=== PATIENT | female | born 1950 | race Caucasian/White ===

== ENCOUNTER 2020-07-02 08:00 | Outpatient (CLI) | payer MEDICARE, OTHER ==
[2020-07-02 13:02] LABS: CHOL/HDL RATIO 3.2 (<4.4); CHOLESTEROL 175 mg/dL; HDL CHOLESTEROL 55 mg/dL; LDL CHOLESTEROL,CALCULATED 88 mg/dL; LDL/HDL RATIO 1.6 (<4.4); TRIGLYCERIDES 162 mg/dL; VLDL CHOLESTEROL 32 mg/dL
[2020-07-02 13:04] LABS: THYROID STIMULATING HORMONE 1.55 uIU/mL (0.34-5.60)
== END 2020-07-02 23:59 | disposition home or self-care (01) ==
LOC: LAB.WCP 08:00
PROVIDERS: ATTEND Family Medicine
DX: E78.5 Hyperlipidemia, unspecified (principal); E03.9 Hypothyroidism, unspecified
CPT/HCPCS: 36415; 80061; 83721; 84443

== ENCOUNTER 2022-01-03 09:31 | Outpatient (CLI) | payer MEDICARE, OTHER ==
[2022-01-03 12:18] LABS: BASOPHILS % (AUTO) 0.5 %; EOSINOPHILS # (AUTO) 0.4 10^3/uL (0.0-0.7); EOSINOPHILS % (AUTO) 6.2 %; HCT - HEMATOCRIT 41.3 % (37.0-47.0); HGB - HEMOGLOBIN 13.3 g/dL (12.0-16.0); LYMPHOCYTES # (AUTO) 1.6 10^3/uL (1.5-3.5); LYMPHOCYTES % (AUTO) 27.4 %; MEAN CORPUSCULAR HEMOGLOBIN 30.1 pg (27.0-31.0); MEAN CORPUSCULAR HGB CONC 32.2 g/dL (32.0-36.0); MEAN CORPUSCULAR VOLUME 93.4 fL (81.0-99.0); MEAN PLATELET VOLUME 10.1 fL (7.9-10.8); MONOCYTES # (AUTO) 0.4 10^3/uL (0.0-1.0); MONOCYTES % (AUTO) 6.6 %; NEUTROPHILS # (AUTO) 3.4 10^3/uL (1.5-6.6); PLT - PLATELET COUNT 290 10^3/uL (130-450); RED BLOOD COUNT 4.42 10^6/uL (4.20-5.40); RED CELL DISTRIBUTION WIDTH 12.7 % (12.0-15.0); WHITE BLOOD COUNT 5.8 x10^3/uL (4.8-10.8)
[2022-01-03 12:50] LABS: THYROID STIMULATING HORMONE 2.62 uIU/mL (0.34-5.60)
[2022-01-03 13:04] LABS: ALBUMIN 4.2 g/dL (3.2-5.5); ALBUMIN/GLOBULIN RATIO 1.2 (1.0-2.2); ALKALINE PHOSPHATASE 68 IU/L (42-121); ALT ALANINE AMINOTRANSFERASE 20 IU/L (10-60); AST ASPARTATE AMINOTRANSFERASE 21 IU/L (10-42); BILIRUBIN,TOTAL 0.4 mg/dL (0.2-1.0); BUN - BLOOD UREA NITROGEN 17 mg/dL (6-20); CHOL/HDL RATIO 3.8 (<4.4); CHOLESTEROL 185 mg/dL; GFR - MDRD 55 (>89); HDL CHOLESTEROL 49 mg/dL; LDL CHOLESTEROL,CALCULATED 101 mg/dL; LDL/HDL RATIO 2.1 (<4.4); TOTAL PROTEIN 7.7 g/dL (6.7-8.2); TRIGLYCERIDES 175 mg/dL; VLDL CHOLESTEROL 35 mg/dL
[2022-01-03 13:16] LABS: CARBON DIOXIDE - CO2 31 mmol/L (21-32); CHLORIDE 100 mmol/L (101-111); GLUCOSE 99 mg/dL (70-100); POTASSIUM 4.5 mmol/L (3.5-5.0); SODIUM 140 mmol/L (135-145)
== END 2022-01-03 09:32 | disposition home or self-care (01) ==
LOC: LAB.N 09:31
PROVIDERS: ATTEND Physician Assistant
DX: I10 Essential (primary) hypertension (principal); E78.5 Hyperlipidemia, unspecified; E03.9 Hypothyroidism, unspecified
CPT/HCPCS: 36415; 80053; 80061; 83721; 84443; 85025

== ENCOUNTER 2022-05-06 10:21 | Emergency (ER) | payer MEDICARE, BC ==
--- NOTE | 2022-05-06 10:57 | ED Physician Documentation ---
PD HPI LOWER EXT INJURY - Stated complaint Stated Complaint: RIGHT FT TOE INJURY - Chief complaint Chief Complaint: Trauma Ext - History obtained from History obtained from: Patient - History of Present Illness PD HPI LOW EXT INJURY LOCATION: Right, Toe (4th toe) Type of injury: Blunt / blow (accidentally struck toe on furniture when walking barefoot at home last evening.) Where injury occurred: Home Timing - onset: Last night Timing - details: Abrupt onset, Still present Review of Systems Constitutional: denies: Fever, Chills Skin: denies: Abrasion (s), Laceration (s) Neurologic: denies: Focal weakness, Numbness PD PAST MEDICAL HISTORY - Present Medications Home Medications: Ambulatory Orders Medication Instructions Recorded Confirmed Aspirin [Aspirin EC] 81 mg PO DAILY 05/06/22 05/06/22 Calcium Carbonate [Calcium] 600 mg PO DAILY 05/06/22 05/06/22 Cholecalciferol (Vitamin D3) 1,000 unit PO DAILY 05/06/22 05/06/22 [Vitamin D3] Levothyroxine [Synthroid] 75 mcg PO QDAC 05/06/22 05/06/22 Losartan Potassium [Cozaar] 100 mg PO DAILY 05/06/22 05/06/22 Multivitamin 1 each PO DAILY 05/06/22 05/06/22 Simvastatin [Zocor] 40 mg PO HS 05/06/22 05/06/22 hydroCHLOROthiazide [Hydrodiuril] 25 mg PO DAILY 05/06/22 05/06/22 - Allergies Allergies/Adverse Reactions: Allergies Allergy/AdvReac Type Severity Reaction Status Date / Time acetaminophen [From Vicodin] AdvReac Nausea Verified 05/06/22 10:27 hydrocodone [From Vicodin] AdvReac Nausea Verified 05/06/22 10:27 PD ED PE NORMAL - Vitals Vital signs reviewed: Yes - General General: Alert and oriented X 3, Well developed/nourished - Derm Derm: Normal color, Warm and dry Results - Vitals Vitals: Vital Signs - 24 hr 05/06/22 05/06/22 10:25 11:50 Temperature 36.5 C Heart Rate 62 65 Respiratory 14 16 Rate Blood Pressure 169/85 H 150/78 H O2 Saturation 99 98 Oxygen O2 Source Room air - Rads (name of study) toes right Relevant Findings:: Prelim report reviewed, EMP independent interpretation of test (slightly angulated diagnoal fracture of proximal 4th toe. ), See rad report PD Medical Decision Making - ED course Complexity details: reviewed results, re-evaluated patient (the fracture is just tipped/angled and not dislocated. It just needs fransico taping. ), considered differential (eval to see if fractured or sprained. ), d/w patient Social Determinants of Health: she is going on a trip vacation to [place] in 8 days. she is hoping to walk on [place]. I believe she can do that and it will hurt to have toe shift around on sand movement, but okay to do it if not hurting too much. Keep it taped fransico. Departure - Departure Disposition: 01 Home, Self Care Clinical Impression: Toe fracture, right Condition: Stable Instructions: ED Fx Toe Closed Follow-Up: Orthopedic Care [Provider Group] Comments: Your toe is fractured. It is a diagonal type fracture through the shaft of the proximal tailbone. It is crooked mostly just because it is leaning to the side. Fransico tape it to the third toe to help keep it more straight and less movement. Firm soled shoe will help with the discomfort of walking. This really just needs to heal up over 3 to 4 weeks and be kept fairly splinted or taped in position as it heals. Elevate and rest it to reduce swelling. Activity as tolerated. Tylenol or ibuprofen if needed for pains. Recheck if its not feeling healed up well over 3 to 4 weeks. Discharge Date/Time: 05/06/22 11:51
--- NOTE | 2022-05-06 11:40 | XRAY Report ---
PROCEDURE: Foot 3 View RT INDICATIONS: Trauma TECHNIQUE: 4 views of the foot were acquired. COMPARISON: None. FINDINGS: Bones: Fourth digit proximal phalanx oblique shaft fracture. No dislocations. This fracture could be subacute. No intra-articular extension. No suspicious bony lesions. Soft tissues: No tibiotalar joint effusion. Achilles tendon appears normal. IMPRESSION: Fourth digit proximal phalanx shaft fracture. Reviewed by: Maurice Solano MD on 05/06/2022 11:39 AM [facility] Approved by: Maurice Solano MD on 05/06/2022 11:39 AM [facility] Station ID: [id number]
[2022-05-06 11:51] VITALS: BP 150/78
== END 2022-05-06 11:51 | disposition home or self-care (01) ==
LOC: ED 10:21
DX: S92.511A Displaced fracture of proximal phalanx of right lesser toe(s), initial encounter for closed fracture (principal); W22.03XA Walked into furniture, initial encounter; Y93.01 Activity, walking, marching and hiking; Y92.009 Unspecified place in unspecified non-institutional (private) residence as the place of occurrence of the external cause
CPT/HCPCS: 99283

== ENCOUNTER 2023-06-07 08:06 | Outpatient (CLI) | payer MEDICARE, BC ==
[2023-06-07 12:02] LABS: BASOPHILS % (AUTO) 0.6 %; EOSINOPHILS # (AUTO) 0.3 10^3/uL (0.0-0.7); EOSINOPHILS % (AUTO) 6.9 %; HCT - HEMATOCRIT 43.9 % (37.0-47.0); HGB - HEMOGLOBIN 13.9 g/dL (12.0-16.0); LYMPHOCYTES # (AUTO) 1.3 10^3/uL (1.5-3.5); LYMPHOCYTES % (AUTO) 26.2 %; MEAN CORPUSCULAR HEMOGLOBIN 29.8 pg (27.0-31.0); MEAN CORPUSCULAR HGB CONC 31.7 g/dL (32.0-36.0); MEAN PLATELET VOLUME 10.6 fL (7.9-10.8); MONOCYTES # (AUTO) 0.3 10^3/uL (0.0-1.0); MONOCYTES % (AUTO) 6.7 %; NEUTROPHILS # (AUTO) 2.8 10^3/uL (1.5-6.6); NEUTROPHILS % (AUTO) 59.4 %; PLT - PLATELET COUNT 250 10^3/uL (130-450); RED BLOOD COUNT 4.67 10^6/uL (4.20-5.40); RED CELL DISTRIBUTION WIDTH 12.6 % (12.0-15.0); WHITE BLOOD COUNT 4.8 x10^3/uL (4.8-10.8)
[2023-06-07 12:20] LABS: ALBUMIN 4.3 g/dL (3.2-5.5); ALBUMIN/GLOBULIN RATIO 1.3 (1.0-2.2); ALKALINE PHOSPHATASE 60 IU/L (42-121); ALT ALANINE AMINOTRANSFERASE 16 IU/L (10-60); AST ASPARTATE AMINOTRANSFERASE 18 IU/L (10-42); BILIRUBIN,TOTAL 0.5 mg/dL (0.2-1.0); BUN - BLOOD UREA NITROGEN 17 mg/dL (6-20); CALCIUM 10.8 mg/dL (8.5-10.3); CARBON DIOXIDE - CO2 34 mmol/L (21-32); CHLORIDE 99 mmol/L (101-111); CHOL/HDL RATIO 3.5 (<4.4); CHOLESTEROL 202 mg/dL; GFR - MDRD 55 (>89); GLUCOSE 101 mg/dL (74-104); HDL CHOLESTEROL 58 mg/dL; LDL CHOLESTEROL,CALCULATED 90 mg/dL; LDL/HDL RATIO 1.6 (<4.4); POTASSIUM 3.6 mmol/L (3.5-4.5); SODIUM 139 mmol/L (135-145); TOTAL PROTEIN 7.6 g/dL (6.4-8.9); TRIGLYCERIDES 270 mg/dL (48-352); VLDL CHOLESTEROL 54 mg/dL
[2023-06-07 12:30] LABS: THYROID STIMULATING HORMONE 2.71 uIU/mL (0.34-5.60)
== END 2023-06-07 08:07 | disposition home or self-care (01) ==
LOC: LAB.N 08:06
PROVIDERS: ATTEND Physician Assistant
DX: I10 Essential (primary) hypertension (principal); E78.5 Hyperlipidemia, unspecified
CPT/HCPCS: 36415; 80053; 80061; 83721; 84443; 85025